=== PATIENT | male | born 1940 | race Caucasian/White ===

== ENCOUNTER 2021-08-16 09:35 | Emergency (ER) | payer OTHER ==
[2021-08-16 09:43] VITALS: BMI 28.2
[2021-08-16] MEDS ORDERED: SOTROVIMAB 500 MG in SODIUM CHLORIDE 100 ML IVPB ONE (10:12)
[2021-08-16 11:58] VITALS: BP 133/55; PULSE 84; TEMP 98
== END 2021-08-16 12:10 | disposition home or self-care (01) ==
LOC: JER 09:35
DX: U07.1 COVID-19 (principal)
CPT/HCPCS: 71046-TC-FY; 99284-25; M0247; Q0247